=== PATIENT | female | born 1965 | race African-American/Black ===

== ENCOUNTER 2019-01-31 21:36 | Emergency (ER) | payer BC ==
[~2019-01-31] VITALS: Ht 165.1 cm; Wt 68.0 kg
[2019-01-31] MEDS ORDERED: NKM (21:54)
--- NOTE | 2019-01-31 21:55 | NUR ---
ED Nurse Note: Patient walked into ED c/o laceration on the left thumb, which she got cut with by a knife, laceration is about 1 inch in length. Pt is AO x 4times, VSS, on room air no distress. JADAD seen Pt at bedside.
[2019-01-31 22:27] VITALS: BP 136/87
[2019-01-31] MEDS ORDERED: Tetanus/Diptheria/Pertussis IM ONE (23:15)
[2019-01-31] MEDS ORDERED: Bupivacaine 0.5% Inj 30 ml vial INJ ONE (23:15)
[2019-01-31] MEDS ORDERED: BACITRACIN ZIN1 EACH TOPIC (23:38)
[2019-01-31] MEDS ORDERED: CEPHALEXIN500 MG ORAL (23:38)
[2019-01-31] MEDS ORDERED: Bacitracin Oint UD TOPIC ONE (23:45)
[2019-01-31 23:51] VITALS: BP 127/81
--- NOTE | 2019-01-31 23:51 | NUR ---
ER DISCHARGE NOTE: Patient is cleared to be discharged per ERMD, pt is aox4, on room air, with stable vital signs. pt was given dc and prescription instructions, pt was able to verbalize understanding, pt id band removed without complications. pt is able to ambulate with steady gait. pt took all belongings.
[2019-01-31 23:52] VITALS: BP 127/81
--- NOTE | 2019-02-02 04:14 | Emergency Room Report ---
History of Present Illness General Chief Complaint: Laceration Source: Patient Present Illness HPI Patient 53-year-old female presented after increased pain to her thumb. Patient reportedly was cut with a knife accidentally. She denies any other locations of pain.Patient had noticed persistent bleeding and presented the emergency department for definitive management of laceration. Allergies: Coded Allergies: PENICILLINS (Verified Allergy, Unknown, 01/31/19) Patient History Past Medical History: see triage record Last Menstrual Period: n/a Reviewed Nursing Documentation: PMH: Agreed; PSxH: Agreed Nursing Documentation-PM Past Medical History: No Stated History Review of Systems All Other Systems: negative except mentioned in HPI Physical Exam Vital Signs Date Time Temp Pulse Resp B/P (MAP) Pulse Ox O2 Delivery O2 Flow Rate FiO2 01/31/19 21:36 98.1 72 18 129/90 (103) 98 Room Air General Appearance: well appearing, no apparent distress, alert, GCS 15 Head: normocephalic, atraumatic ENT: hearing grossly normal, normal voice Neck: full range of motion, supple Respiratory: no respiratory distress, speaking full sentences Neurologic: normal inspection, alert, oriented x3, responsive, normal gait Psychiatric: mood/affect normal Skin: no rash, laceration - 1cm linear Procedures Laceration/Wound Repair Laceration/Wound Repair : Consent: Verbal Wound Location: upper extremity Wound's Depth, Shape: superficial Wound Length (cm): 1 Wound Explored: clean Irrigated w/ Saline (ccs): 10 Betadine Prep?: Yes Anesthesia: 1% Lidocaine Volume Anesthetic (ccs): 2 Wound Debrided: minimal Wound Repaired With: sutures Suture Size/Type: 4:0 Number of Sutures: 2 Layer Closure?: No Patient Tolerated: Well Complications: None Medical Decision Making Diagnostic Impression: Primary Impression: Laceration ER Course Patient presented for laceration. Differential diagnosis include was not limited to foreign body, fracture, nerve injury among others. Patient was noted to have a benign exam does not require any imaging at this time. Laceration was repaired after irrigation. Patient was noted to have improved hemostasis. Patient was discharged home she is advised to have wound rechecked in 3 days. She is advised suture removal in 10 to 14 days. Last Vital Signs Date Time Temp Pulse Resp B/P (MAP) Pulse Ox O2 Delivery O2 Flow Rate FiO2 01/31/19 23:52 97.8 77 18 127/81 100 Room Air Status: improved Disposition: HOME, SELF-CARE Condition: Stable Scripts Cephalexin* (KEFLEX*) 500 Mg Capsule 500 MG ORAL EVERY 6 HOURS, #28 CAP Prov: Johnson Elliott MD 01/31/19 Bacitracin Zinc* (BACITRACIN ZINC*) 1 Each Packet 1 APPLIC TOPIC THREE TIMES A DAY, #20 PACKET Prov: Johnson Elliott MD 01/31/19 Referrals: NOT CHOSEN IPA/MD,REFERRING (PCP) Patient Instructions: Laceration Care, Adult Additional Instructions: Follow up for recheck in 2-3 days. Suture removal in 10 days to 2 weeks if not dissolved Johnson Elliott MD Feb 02, 2019 04:14
== END 2019-01-31 23:52 | disposition home or self-care (01) ==
LOC: EMR 22:30
DX: S61.012A Laceration without foreign body of left thumb without damage to nail, initial encounter (principal); W26.0XXA Contact with knife, initial encounter; Y92.9 Unspecified place or not applicable; Z88.0 Allergy status to penicillin; Z23 Encounter for immunization
CPT/HCPCS: 12001; 90471; 90715; 99283; J3490